=== PATIENT | male | born 1955 | race Caucasian/White ===

== ENCOUNTER 2018-09-12 09:13 | Day surgery (SDC) | payer BC, OTHER ==
[~2018-09-12 09:13] MED LIST: SEVOFLURANE 15 MIN
[2018-09-12] MEDS ORDERED: CEFAZOLIN 1 GM INJ (10:14)
[2018-09-12] MEDS ORDERED: PROPOFOL 20 ML (10:14)
[2018-09-12] MEDS ORDERED: MIDAZOLAM 1 MG/ML 2 ML INJ (10:14)
[2018-09-12] MEDS ORDERED: LIDOCAINE 2% (SDV) 5 ML INJ (10:14)
[2018-09-12] MEDS ORDERED: FENTAnyl 50 MCG/ML VIAL (10:14)
[2018-09-12] MEDS ORDERED: SOD CHLORIDE 0.9% 1,000 ML IV (11:00)
[2018-09-12] MEDS ORDERED: CEFAZOLIN 2 GM/50 ML (PMX) 50 ML IVPB (11:00)
[2018-09-12] MEDS ORDERED: ONDANSETRON 4 MG INJ (11:12)
[2018-09-12] MEDS ORDERED: DEXAMETHASONE 4 MG/ML 5 ML INJ (11:13)
[2018-09-12] MEDS ORDERED: METOCLOPRAMIDE 10 MG INJ (11:13)
[2018-09-12] MEDS ORDERED: FAMOTIDINE 20 MG INJ (11:13)
[2018-09-12] MEDS ORDERED: ONDANSETRON 4 MG INJ IV (11:30)
[2018-09-12] MEDS ORDERED: MEPERIDINE 25 MG INJ IV (11:30)
[2018-09-12] MEDS ORDERED: OXYCODONE/ACETAMINOPHEN (5/325) TAB PO ×2 (11:30)
[2018-09-12] MEDS ORDERED: FENTAnyl 50 MCG/ML VIAL IV ×3 (11:30)
[2018-09-12] MEDS: BUPIVACAINE 0.25% (MPF) 30 ML INJ (11:54)
[2018-09-12] MEDS ORDERED: HYDROCODONE/APAP (5/325) TAB PO (12:00)
== END 2018-09-12 13:16 | disposition home or self-care (01) ==
LOC: SDS 09:13
DX: C44.41 Basal cell carcinoma of skin of scalp and neck (principal)
CPT/HCPCS: 14020; 88305; 93005